=== PATIENT | male | born 1965 | race Caucasian/White ===

== ENCOUNTER 2021-04-06 17:34 | Inpatient (IN) ==
[2021-04-06 20:33] VITALS: BMI 29.9
[2021-04-06] MEDS ORDERED: PERCOCET TAB 5/325 MG PO PRN (20:54)
[2021-04-06] MEDS ORDERED: HEPARIN SODIUM IN D5W 25,000 UNITS/500 ML BAG IV PRN (20:54)
[2021-04-06] MEDS ORDERED: DILAUDID INJ IVP PRN (20:57)
[2021-04-06 21:16] LABS: BASOPHILS # (AUTO) 0.1 X10^3/uL (0.0-0.1); BASOPHILS % (AUTO) 0.6 % (0.2-1.0); EOSINOPHILS # (AUTO) 0.3 x10^3/uL (0.0-0.2); HEMATOCRIT 38.4 % (42.0-54.0); HEMOGLOBIN 13.6 g/dL (13.5-18.0); LYMPHOCYTES # (AUTO) 3.4 X10^3/uL (1.3-2.9); LYMPHOCYTES % (AUTO) 39.3 % (21.0-51.0); MEAN CORPUSCULAR HEMOGLOBIN 31.1 pg (27.0-34.0); MEAN CORPUSCULAR HGB CONC 35.3 g/dL (33.0-35.0); MEAN PLATELET VOLUME 6.6 fL (7.4-11.0); MONOCYTES % (AUTO) 11.4 % (0.0-13.0); NEUTROPHILS # (AUTO) 3.9 x10^3/uL (2.2-4.8); NEUTROPHILS % (AUTO) 44.7 % (42.0-75.0); PLATELET COUNT 295 X10^3/uL (150.0-450.0); RED BLOOD COUNT 4.37 X10^6/uL (4.7-6.0); RED CELL DISTRIBUTION WIDTH 12.4 % (11.6-16.5); WHITE BLOOD COUNT 8.7 X10^3/uL (3.6-10.0)
--- NOTE | 2021-04-06 21:18 | DR.H&P ---
H&P History & Physical for Day of: H&P Date: 04/06/21 Chief Complaint Chief Complaint: 55 year old male with non-healing Venous stasis ulcer to the left medial ankle . Allergies Allergies Allergy/AdvReac Type Severity Reaction Status Date / Time No Known Drug Allergies Allergy Verified 04/06/21 20:39 [NKDA] History of Present Illness History of Present Illness: 55 year old male with non-healing Venous stasis ulcer to the left medial ankle. History of deep Venous Thrombosis of the left leg in the past treated with Eliquis x 3 months. No longer on Eliquis. No history or family history of coagulation problems. History of ulcer colitis status post total proctocolectomy with a J pouch .he had venous insufficiency studies day showing extensive thrombosis ,both exclusive the non-exclusive of the left femoral vein, popliteal vein and tibial as well as superficial Venous Thrombosis of the right greater saphenous vein . he is admitted for any correlation and further study Past Medical History Past Medical History: Hypertension Additional Medical History: history of ulcerative colitis status post total proctocolectomy with J pouch Past Surgical History Surgical History: Abdominal Surgery (total proctocolectomy with J pouch and interim pop off ileostomy now closed ) Social History Does patient currently use any type of tobacco product: Yes Have you used tobacco products in the last 12 months: Yes Type of Tobacco Use: Smokeless Does any household member use tobacco: No Alcohol Use: DAILY Drug Use: None Prescription drug monitoring program results: PDMP reviewed and no concerns identified Medications Home Medications: No Known Drug Allergies [NKDA] Allergy (Verified 04/06/21 20:39) CONTINUE taking the following medications amlodipine 10 mg PO DAILY 04/06/21 [History] diphenoxylate-atropine [Lomotil] tab 04/06/21 [History] lisinopril 40 mg PO DAILY 04/06/21 [History] Labs Result Diagrams: 04/06/21 21:07 04/06/21 21:07 Labs: Laboratory SARS CoV-2 RNA Rapid ANT Negative (NEGATIVE) 04/06/21 18:17 labs pending Review of Systems Constitutional: No Symptoms Reported Eyes: No Symptoms Reported ENT: No Symptoms Reported Respiratory: No Symptoms Reported Cardiovascular: No Symptoms Reported Gastrointestinal: No Symptoms Reported Genitourinary: No Symptoms Reported Musculoskeletal: No Symptoms Reported Skin: Other (Venous stasis ulceration to the left medial ankle ) Physical Exam Vital Signs: Temperature 98.8 F Pulse Rate 59 Respiratory Rate 20 Blood Pressure 147/87 O2 Sat by Pulse Oximetry 98 Oriented: Normal, Time, Person and Place Eyes: Normal Ear: Normal Nose: Normal Throat: Normal Respiratory: Clear Throughout Cardiovascular: Normal : Normal Auscultation: Bowel Sounds: Normal Palpation: Normal and Other (healed midline incision. ) Tenderness: Normal Skin: Wound (5 cm by 3 cm by 0. 2 CM superficial ulceration left medial ankle consistent with Venous stasis ,mild hemosiderin deposition both ankles ) Musculoskeletal: Normal Psychiatric: Normal Mood Description: Calm Affect: Normal Speech Pattern: Clear Assessment/Plan (1) Deep venous embolism and thrombosis of left lower extremity: Status: Acute Plan: will place on Heparin drip. Plan placement of EKOS catheter and venography of the left leg tomorrow (2) Ulcerative (chronic) enterocolitis: Status: Acute Plan: no current treatment (3) Hypertension: Status: Acute Plan: treat with amlodipine and lisinopril as outpatient Review H&P Reviewed: Yes Patient was examined?: Yes
[2021-04-06 21:24] LABS: BLOOD UREA NITROGEN 12 mg/dL (7-18); CALCIUM 8.7 mg/dL (8.5-10.1); CARBON DIOXIDE 29.6 mmol/L (21-32); CHLORIDE 104 mmol/L (98-107); CREATININE 1.03 mg/dL (0.70-1.30); SODIUM 140 mmol/L (136-145); eGFR NON BLACK RACES > 60 (>60)
[2021-04-06] MEDS: LR 1,000 ML IV 1,000 ML IV SCH (21:34)
[2021-04-06] MEDS ORDERED: HEPARIN SODIUM INJ 5000 UNITS IVP ONE (21:43)
[2021-04-07] MEDS ORDERED: HEPARIN SODIUM INJ 5000 UNITS IVP ONE (04:31)
--- NOTE | 2021-04-07 08:41 | RAD ---
HISTORYpre op vascular sxSTUDYCHEST, 1 VIEWCOMPARISONNoneTECHNIQUEAP view of the chestFINDINGSThe cardiac and mediastinal contours are within normal limits. The lungs are clear without focal consolidation or segmental collapse. No pleural effusion or pneumothorax.IMPRESSIONNo acute pulmonary process.Electronically signed by: Colby Varela (Apr 07, 2021 08:39:55)
[2021-04-07] MEDS: LR 1,000 ML IV 1,000 ML IV SCH (09:03)
[2021-04-07] MEDS ORDERED: ANCEF 1 GRAM IV PREMIX* 1 G/50 ML BAG IV ONE (11:49)
[2021-04-07] MEDS ORDERED: BRIDION ONE (11:54)
[2021-04-07] MEDS ORDERED: DECADRON INJ ONE (11:54)
[2021-04-07] MEDS ORDERED: FENTANYL VIAL INJ 100 mcg ONE (11:55)
[2021-04-07] MEDS ORDERED: OFIRMEV IV 1000 MG VIAL 1,000 MG/100 ML VIAL IV ONE (11:55)
[2021-04-07] MEDS ORDERED: PEPCID 20 MG IV PREMIX* 50 ML IV ONE (11:55)
[2021-04-07] MEDS ORDERED: DILAUDID INJ ONE (11:55)
[2021-04-07] MEDS ORDERED: ACTIVASE CATHFLO 12 MG in NS 250 ML IV 228 ML INTRACATH SCH (12:30)
[2021-04-07] MEDS ORDERED: HEPARIN SODIUM INJ 5000 UNITS ONE (12:32)
[2021-04-07] MEDS ORDERED: HEPARIN SODIUM IN D5W 75,000 UNITS/1,500 ML BAG ONE (12:33)
[2021-04-07] MEDS ORDERED: ACTIVASE CATHFLO ONE (12:33)
[2021-04-07] MEDS ORDERED: NS 500 ML IV 500 ML IV ONE (12:33)
[2021-04-07] MEDS ORDERED: HEPARIN SODIUM IN D5W 25,000 UNITS/500 ML BAG ONE (12:41)
[2021-04-07] MEDS ORDERED: XYLOCAINE 2 % (PLAIN) ONE (12:49)
[2021-04-07] MEDS ORDERED: ROBINUL ONE (12:49)
[2021-04-07] MEDS ORDERED: ZEMURON 50 MG VIAL ONE (12:49)
[2021-04-07] MEDS ORDERED: ULTANE GAS IN ONE (12:49)
[2021-04-07] MEDS ORDERED: EPHEDRINE SULFATE INJ ONE (12:49)
[2021-04-07] MEDS ORDERED: ZOFRAN INJ 4 MG VIAL ONE (12:49)
[2021-04-07] MEDS ORDERED: DIPRIVAN VIAL ONE (12:49)
[2021-04-07] MEDS ORDERED: VERSED ONE (12:49)
[2021-04-07] MEDS ORDERED: KETALAR ONE (12:49)
[2021-04-07] MEDS ORDERED: REGLAN INJ 10 MG VIAL IVP PRN (14:35)
[2021-04-07] MEDS ORDERED: PHENERGAN INJ 25 MG IM PRN (14:35)
[2021-04-07] MEDS ORDERED: LR 1,000 ML IV 1,000 ML IV ONE (14:35)
[2021-04-07] MEDS ORDERED: ZOFRAN INJ 4 MG VIAL IVP PRN (14:35)
[2021-04-07] MEDS ORDERED: BARHEMSYS INJ IVP PRN (14:35)
[2021-04-07] MEDS ORDERED: BENADRYL INJ 50 MG VIAL IVP PRN (14:35)
[2021-04-07] MEDS ORDERED: DILAUDID INJ IVP PRN (14:35)
--- NOTE | 2021-04-07 14:36 | OR.IMMED ---
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
[2021-04-07] MEDS: NORVASC TAB 10 MG PO SCH (15:46)
[2021-04-07] MEDS: ZESTRIL TAB 40 MG PO SCH (15:46)
--- NOTE | 2021-04-07 20:01 | DR.OPNOTE ---
OP NOTE Pre-Op Diagnosis: Extensive occlusive and nonocclusive thrombus throughout the left leg veins Post-Op Diagnosis: distal venous scarring , no acute thrombus, left iliac compression Procedure Date Date Of Procedure: 04/07/21 Procedure: PROCEDURE: left lower extremity venogram NARRATIVE : This patient was evaluated for non-healing Venous stasis ulcer to the left medial ankle. He had a history of deep Venous Thrombosis approximately 18 months prior and treated with three months of Eliquis. Follow-up ultrasound venous insufficiency study was interpreted as extensive occlusive and non- occlusive thrombus throughout the left femoral vein, popliteal vein and tibial veins. The patient was taken to the operative suite and general endotracheal anesthesia induced. Patient was then placed in the prone position and the left popliteal fossa prepped and draped in sterile fashion. Time out for the procedure obtained .Ultrasound used to identify the left popliteal vein and used to puncture the left popliteal vein with placement of a 0. 012 inch guide wire. Incision made over the guide wire at the skin level and microsheath placed in the left popliteal vein. The patient was given 5,000 units of intravenous heparin. The small wire exchanged for a 0. 035 inch Advantage glidewire and the microsheath exchanged for a 6 Vietnamese vascular sheath. Venogram carried out showing extensive collateral flow around the left knee. Trailblazer catheter placed over the guide wire and used to guide it through the very small popliteal vein into the femoral vein and venogram performed showing no evidence of thrombus Venogram also carried out of the iliac veins showing no thrombus but significant compression of both the left external and left common iliac veins. Attempted to place intravascular ultrasound but was unsuccessful due to the tight area in the popliteal vein. Elected to stop and treat this patient with Eliquis for now and come back at another time and access through the femoral vein to perform stenting of the left iliac vein in the future. I have explained this to the patient and his family. They agree to proceed. Patient was given 20 mg of IV Protamine .Wire and the sheath in the popliteal fossa removed and pressure held for 10 minutes and dressing applied. Patient taken to PACU for recovery. Type of Anesthesia: General Anesthetic w/ETT and General Anesthetic w/mask Findings: Evidence of old scarring distal veins of the left leg. Poor healing Venous stasis ulcer medial left ankle .Significant collateral venous flow below the knee of the left leg . No obvious acute thrombus left popliteal vein or femoral vein . Significant compression of the left external iliac vein and left common iliac vein . Specimen/Pathology: none Total Amount of Fluid Infused:: 400 cc EBL: minimal Drains/Tubes Placed: None Complications:: none Needle/Sponge Count:: correct Disposition/Condition: Pt. tolerated procedure without difficulty. Extubated in the OR and taken to ICU iin stable condition.
[2021-04-07] MEDS: ELIQUIS PO SCH (20:23)
[2021-04-08] MEDS: LR 1,000 ML IV 1,000 ML IV SCH ×3 (05:00→12:10)
[2021-04-08] MEDS: ZESTRIL TAB 40 MG PO SCH (08:55)
[2021-04-08] MEDS: ELIQUIS PO SCH (08:55)
[2021-04-08] MEDS: NORVASC TAB 10 MG PO SCH (08:55)
[2021-04-08 12:08] VITALS: BP 125/71
--- NOTE | 2021-04-08 12:47 | W.DIS.FURT ---
Summary of Discharge Discharge Summary of Date Date of Exam: 04/08/21 Admission Date Date of Admission: 04/06/21 Admission Diagnosis Hospital Course: 55 year old male with a history of deep venous thrombosis of the left leg approximately eighteen months ago treated with Eliquis for 3 months. Now with non-healing venous stasis ulcer to the left medial ankle. Venous insufficiency studies were performed and interpreted as significant occlusive and non inclusive thrombus of the left popliteal and femoral veins. He was admitted and placed on a Heparin drip. He was taken to the operating Suite the next day where he underwent puncture of the left popliteal vein in the left popliteal fossa with on table venogram showing significant collateral flow around the knee and probable old DVT below the knee. However, the popliteal vein and femoral vein were normal showing no thrombus. However, there was significant extrinsic compression of the left common and external iliac veins. At this time I have chosen to treat with Eliquis for 3 months and in the next few weeks will do a femoral vein approach to the left iliac vein with stenting . Because of the history of thrombosis of the right greater saphenous vein I will perform venogram of the right iliac veins as well .He will be on Eliquis 10 mg BID x 6 days , then decrease to 5 mg po BID. Follow up with me in one week. Vital Signs: Vital Signs (72 hours) 04/06/21 20:00 04/06/21 21:00 04/06/21 22:00 Temperature 98.8 F Pulse Rate 59 L 58 L 54 L Respiratory Rate 20 18 16 Blood Pressure 147/87 157/89 157/89 O2 Sat by Pulse Oximetry 98 98 96 04/06/21 23:00 04/07/21 00:00 04/07/21 00:45 Temperature 98.6 F Pulse Rate 57 L 52 L 50 L Respiratory Rate 15 17 16 Blood Pressure 129/74 108/69 O2 Sat by Pulse Oximetry 95 96 96 04/07/21 01:00 04/07/21 01:15 04/07/21 01:32 Temperature Pulse Rate 51 L 57 L 76 Respiratory Rate 14 15 Blood Pressure 118/68 O2 Sat by Pulse Oximetry 96 97 95 04/07/21 01:45 04/07/21 02:00 04/07/21 02:03 Temperature Pulse Rate 55 L 55 L 58 L Respiratory Rate 0 L 18 Blood Pressure 135/80 135/80 O2 Sat by Pulse Oximetry 96 96 97 04/07/21 02:15 04/07/21 02:30 04/07/21 02:45 Temperature Pulse Rate 56 L 50 L 57 L Respiratory Rate 0 L 5 L 17 Blood Pressure O2 Sat by Pulse Oximetry 96 96 96 04/07/21 03:00 04/07/21 03:01 04/07/21 03:15 Temperature Pulse Rate 48 L 51 L 48 L Respiratory Rate 0 L 0 L 17 Blood Pressure 135/69 135/69 O2 Sat by Pulse Oximetry 97 96 97 04/07/21 03:30 04/07/21 03:45 04/07/21 04:00 Temperature 98.4 F Pulse Rate 48 L 49 L 46 L Respiratory Rate 17 14 13 Blood Pressure 138/74 O2 Sat by Pulse Oximetry 96 96 96 04/07/21 04:15 04/07/21 04:30 04/07/21 04:45 Temperature Pulse Rate 48 L 53 L 52 L Respiratory Rate 17 0 L 0 L Blood Pressure O2 Sat by Pulse Oximetry 97 97 97 04/07/21 05:00 04/07/21 05:15 04/07/21 05:30 Temperature Pulse Rate 56 L 59 L 55 L Respiratory Rate 17 16 17 Blood Pressure 138/85 O2 Sat by Pulse Oximetry 98 99 97 04/07/21 05:45 04/07/21 06:00 04/07/21 06:15 Temperature Pulse Rate 51 L 63 45 L Respiratory Rate 17 17 16 Blood Pressure 133/82 O2 Sat by Pulse Oximetry 97 96 97 04/07/21 06:30 04/07/21 06:45 04/07/21 07:00 Temperature Pulse Rate 47 L 46 L 48 L Respiratory Rate 16 15 15 Blood Pressure 110/61 O2 Sat by Pulse Oximetry 97 96 96 04/07/21 07:15 04/07/21 07:30 04/07/21 07:45 Temperature Pulse Rate 56 L 69 52 L Respiratory Rate 15 21 0 L Blood Pressure O2 Sat by Pulse Oximetry 97 96 96 04/07/21 08:00 04/07/21 08:01 04/07/21 08:15 Temperature Pulse Rate 54 L 52 L 66 Respiratory Rate 21 13 31 H Blood Pressure 150/76 O2 Sat by Pulse Oximetry 96 97 96 04/07/21 08:30 04/07/21 08:45 04/07/21 09:00 Temperature Pulse Rate 61 53 L 53 L Respiratory Rate 20 0 L 7 L Blood Pressure O2 Sat by Pulse Oximetry 95 95 96 04/07/21 09:01 04/07/21 09:15 04/07/21 09:22 Temperature 98.2 F Pulse Rate 53 L 52 L Respiratory Rate 14 0 L Blood Pressure 152/82 O2 Sat by Pulse Oximetry 96 97 04/07/21 09:30 04/07/21 09:45 04/07/21 10:00 Temperature 98.2 F Pulse Rate 57 L 62 55 L Respiratory Rate 14 20 18 Blood Pressure O2 Sat by Pulse Oximetry 97 96 98 04/07/21 10:01 04/07/21 10:15 04/07/21 10:30 Temperature Pulse Rate 57 L 66 56 L Respiratory Rate 19 34 H 8 L Blood Pressure 132/81 O2 Sat by Pulse Oximetry 96 97 97 04/07/21 10:45 04/07/21 10:57 04/07/21 11:00 Temperature 97.9 F 97.9 F Pulse Rate 56 L 51 L Respiratory Rate 14 8 L Blood Pressure 141/73 O2 Sat by Pulse Oximetry 96 97 04/07/21 11:15 04/07/21 14:32 04/07/21 14:37 Temperature 98.0 F 98.0 F Pulse Rate 72 83 88 Respiratory Rate 16 16 Blood Pressure 152/83 146/85 O2 Sat by Pulse Oximetry 97 98 98 04/07/21 14:42 04/07/21 14:47 04/07/21 14:52 Temperature 98.0 F 98.0 F 98.0 F Pulse Rate 84 77 68 Respiratory Rate 16 18 18 Blood Pressure 152/87 139/71 120/70 O2 Sat by Pulse Oximetry 98 98 98 04/07/21 14:55 04/07/21 15:02 04/07/21 15:09 Temperature 98.0 F 98.0 F Pulse Rate 69 69 65 Respiratory Rate 18 18 Blood Pressure 121/69 123/77 131/77 O2 Sat by Pulse Oximetry 98 97 87 L 04/07/21 15:15 04/07/21 15:30 04/07/21 15:45 Temperature 97.8 F Pulse Rate 70 60 54 L Respiratory Rate 18 18 Blood Pressure O2 Sat by Pulse Oximetry 90 L 96 98 04/07/21 16:00 04/07/21 16:15 04/07/21 16:30 Temperature 97.8 F Pulse Rate 71 60 62 Respiratory Rate 25 H 18 22 Blood Pressure O2 Sat by Pulse Oximetry 93 L 98 97 04/07/21 16:45 04/07/21 17:00 04/07/21 17:15 Temperature 98.2 F Pulse Rate 99 H 54 L 97 H Respiratory Rate 33 H 18 27 H Blood Pressure O2 Sat by Pulse Oximetry 94 L 97 95 04/07/21 17:30 04/07/21 17:45 04/07/21 18:00 Temperature Pulse Rate 72 65 66 Respiratory Rate 18 20 19 Blood Pressure O2 Sat by Pulse Oximetry 95 95 96 04/07/21 18:15 04/07/21 18:30 04/07/21 18:45 Temperature Pulse Rate 69 82 81 Respiratory Rate 20 21 21 Blood Pressure O2 Sat by Pulse Oximetry 95 94 L 95 04/07/21 19:00 04/07/21 20:00 04/07/21 21:00 Temperature 98.3 F Pulse Rate 88 99 H 79 Respiratory Rate 19 19 22 Blood Pressure 120/65 120/62 O2 Sat by Pulse Oximetry 95 96 95 04/07/21 22:00 04/07/21 23:00 04/08/21 00:00 Temperature 98.1 F Pulse Rate 75 68 71 Respiratory Rate 22 20 20 Blood Pressure 109/58 109/66 123/71 O2 Sat by Pulse Oximetry 95 94 L 96 04/08/21 00:15 04/08/21 00:30 04/08/21 00:45 Temperature Pulse Rate 75 70 62 Respiratory Rate 20 19 20 Blood Pressure O2 Sat by Pulse Oximetry 97 96 97 04/08/21 01:00 04/08/21 01:15 04/08/21 01:30 Temperature Pulse Rate 61 66 64 Respiratory Rate 20 20 20 Blood Pressure 120/66 O2 Sat by Pulse Oximetry 96 96 96 04/08/21 01:45 04/08/21 02:00 04/08/21 02:15 Temperature Pulse Rate 61 58 L 57 L Respiratory Rate 19 17 17 Blood Pressure 115/66 O2 Sat by Pulse Oximetry 96 95 95 04/08/21 02:30 04/08/21 02:45 04/08/21 03:00 Temperature Pulse Rate 55 L 58 L 58 L Respiratory Rate 17 17 15 Blood Pressure 119/63 O2 Sat by Pulse Oximetry 93 L 93 L 94 L 04/08/21 03:15 04/08/21 03:30 04/08/21 03:45 Temperature Pulse Rate 56 L 51 L 51 L Respiratory Rate 18 22 18 Blood Pressure O2 Sat by Pulse Oximetry 94 L 94 L 94 L 04/08/21 04:00 04/08/21 04:01 04/08/21 04:15 Temperature 98.2 F Pulse Rate 46 L 47 L 68 Respiratory Rate 17 18 19 Blood Pressure 102/53 102/53 O2 Sat by Pulse Oximetry 95 94 L 95 04/08/21 04:30 04/08/21 04:45 04/08/21 05:00 Temperature Pulse Rate 60 61 51 L Respiratory Rate 17 20 19 Blood Pressure 117/66 O2 Sat by Pulse Oximetry 95 96 96 04/08/21 05:15 04/08/21 05:30 04/08/21 05:45 Temperature Pulse Rate 60 54 L 53 L Respiratory Rate 18 18 18 Blood Pressure O2 Sat by Pulse Oximetry 95 98 95 04/08/21 06:00 04/08/21 06:15 04/08/21 06:30 Temperature Pulse Rate 53 L 48 L 47 L Respiratory Rate 16 18 16 Blood Pressure 124/62 O2 Sat by Pulse Oximetry 95 96 95 04/08/21 06:45 04/08/21 07:00 04/08/21 07:15 Temperature Pulse Rate 47 L 47 L 49 L Respiratory Rate 16 16 17 Blood Pressure 119/63 O2 Sat by Pulse Oximetry 95 95 96 04/08/21 07:30 04/08/21 07:45 04/08/21 08:00 Temperature Pulse Rate 54 L 80 65 Respiratory Rate 18 32 H 20 Blood Pressure 134/64 O2 Sat by Pulse Oximetry 98 98 97 04/08/21 08:15 04/08/21 08:30 04/08/21 08:45 Temperature Pulse Rate 52 L 57 L 53 L Respiratory Rate 17 20 19 Blood Pressure O2 Sat by Pulse Oximetry 98 98 98 04/08/21 09:00 04/08/21 09:01 04/08/21 09:15 Temperature Pulse Rate 64 57 L 70 Respiratory Rate 23 19 22 Blood Pressure 143/74 O2 Sat by Pulse Oximetry 98 98 97 04/08/21 09:30 04/08/21 09:45 04/08/21 10:00 Temperature 98.8 F Pulse Rate 47 L 52 L 48 L Respiratory Rate 19 19 18 Blood Pressure 127/73 O2 Sat by Pulse Oximetry 97 98 98 04/08/21 10:15 04/08/21 10:30 04/08/21 10:45 Temperature Pulse Rate 55 L 47 L 52 L Respiratory Rate 19 18 16 Blood Pressure O2 Sat by Pulse Oximetry 98 97 98 04/08/21 11:00 Temperature Pulse Rate 53 L Respiratory Rate 12 Blood Pressure 125/71 O2 Sat by Pulse Oximetry 97 Labs: Laboratory Last Values WBC 8.7 X10^3/uL (3.6-10.0) 04/06/21 21:07 RBC 4.37 X10^6/uL (4.7-6.0) L 04/06/21 21:07 Hgb 13.6 g/dL (13.5-18.0) 04/06/21 21:07 Hct 38.4 % (42.0-54.0) L 04/06/21 21:07 MCV 88.0 fL (80.0-100.0) 04/06/21 21:07 MCH 31.1 pg (27.0-34.0) 04/06/21 21:07 MCHC 35.3 g/dL (33.0-35.0) H 04/06/21 21:07 RDW 12.4 % (11.6-16.5) 04/06/21 21:07 Plt Count 295 X10^3/uL (150.0-450.0) 04/06/21 21:07 MPV 6.6 fL (7.4-11.0) L 04/06/21 21:07 Neut % (Auto) 44.7 % (42.0-75.0) 04/06/21 21:07 Lymph % (Auto) 39.3 % (21.0-51.0) 04/06/21 21:07 [place] % (Auto) 11.4 % (0.0-13.0) 04/06/21 21:07 Eos % (Auto) 4.0 % (0.9-2.9) H 04/06/21 21:07 Baso % (Auto) 0.6 % (0.2-1.0) 04/06/21 21:07 Neut # (Auto) 3.9 x10^3/uL (2.2-4.8) 04/06/21 21:07 Lymph # (Auto) 3.4 X10^3/uL (1.3-2.9) H 04/06/21 21:07 [place] # (Auto) 1.0 x10^3/uL (0.3-0.8) H 04/06/21 21:07 Eos # (Auto) 0.3 x10^3/uL (0.0-0.2) H 04/06/21 21:07 Baso # (Auto) 0.1 X10^3/uL (0.0-0.1) 04/06/21 21:07 Absolute Nucleated RBC 0.1 /100WBC 04/06/21 21:07 PT 12.9 SECONDS (11.8-14.3) 04/06/21 21:07 INR Target Range - 04/06/21 21:07 INR 1.02 (0.8-1.3) 04/06/21 21:07 APTT 64.3 SECONDS (22.9-36.5) H 04/07/21 10:25 PTT Comment - 04/07/21 10:25 Sodium 140 mmol/L (136-145) 04/06/21 21:07 Corrected Sodium TNP 04/06/21 21:07 Potassium 4.1 mmol/L (3.5-5.1) 04/06/21 21:07 Chloride 104 mmol/L (98-107) 04/06/21 21:07 Carbon Dioxide 29.6 mmol/L (21-32) 04/06/21 21:07 BUN 12 mg/dL (7-18) 04/06/21 21:07 Creatinine 1.03 mg/dL (0.70-1.30) 04/06/21 21:07 Est GFR (MDRD) Af Amer > 60 (>60) 04/06/21 21:07 Est GFR (MDRD) Non-Af > 60 (>60) 04/06/21 21:07 Glucose 106 mg/dL (65-99) H 04/06/21 21:07 Calcium 8.7 mg/dL (8.5-10.1) 04/06/21 21:07 SARS CoV-2 RNA Rapid ANT Negative (NEGATIVE) 04/06/21 18:17 Reason For Visit: OCCLUSIVE THROMBOSIS OF LEFT FEMORAL VEIN, Discharge Date Discharge Date: 04/08/21 Discharge Diagnosis All Active Problems (Updated 04/08/21 @ 12:46 by Chidi Sepulveda) Compression, vein (Acute) Deep vein thrombosis of left femoral vein (Acute) Deep venous embolism and thrombosis of left lower extremity (Acute) Ulcerative (chronic) enterocolitis (Acute) Hypertension (Acute) Plan of Treatment: Continue with present treatment and follow up plan. Pt is to keep follow up appointment as instructed and take medications as ordered. Discharge Medications Discharge Medications: No Known Drug Allergies [NKDA] Allergy (Verified 04/06/21 20:39) CONTINUE taking the following medications amlodipine 10 mg PO DAILY 04/06/21 [History] diphenoxylate-atropine [Lomotil] 2 tab PO BID 04/06/21 [History] lisinopril 40 mg PO DAILY 04/06/21 [History] New Prescriptions apixaban [Eliquis] 5 mg PO BID #180 tab 04/08/21 [Rx] Follow up and Referral Follow Up: 1 Week Discharge Disposition Assessment: Hx left leg DVT. Left iliac vein compression. Discharge Disposition: stable Discharge Condition: stable Discharge Plan Discharge Plan Hospital Course: 55 year old male with a history of deep venous thrombosis of the left leg approximately eighteen months ago treated with Eliquis for 3 months. Now with non-healing venous stasis ulcer to the left medial ankle. Venous insufficiency studies were performed and interpreted as significant occlusive and non inclusive thrombus of the left popliteal and femoral veins. He was admitted and placed on a Heparin drip. He was taken to the operating Suite the next day where he underwent puncture of the left popliteal vein in the left popliteal fossa with on table venogram showing significant collateral flow around the knee and probable old DVT below the knee. However, the popliteal vein and femoral vein were normal showing no thrombus. However, there was significant extrinsic compression of the left common and external iliac veins. At this time I have chosen to treat with Eliquis for 3 months and in the next few weeks will do a femoral vein approach to the left iliac vein with stenting . Because of the history of thrombosis of the right greater saphenous vein I will perform venogram of the right iliac veins as well .He will be on Eliquis 10 mg BID x 6 days , then decrease to 5 mg po BID. Follow up with me in one week. Patient Disposition: 01 HOME, SELF-CARE Condition: Stable Health Concerns: Post Hospitalization: new medications and changes needed to prevent readmission or further decline. Pt educated and given instructions on all concerns. Care Plan Goals: Problem: Pain/Alteration in Comfort Goal: Improve/ Resolve Pain; Achieve Pain Tolerance Instructions: Take pain medications as prescribed. Contact your primary care provider if your pain is unrelieved or worsens. Follow up with primary care provider as directed. Plan of Treatment: Continue with present treatment and follow up plan. Pt is to keep follow up appointment as instructed and take medications as ordered. Assessment: Hx left leg DVT. Left iliac vein compression. Prescription drug monitoring program results: PDMP reviewed and no concerns identified Prescriptions: New Eliquis 5 mg Tablet 5 mg PO BID Qty: 180 RF: 0 Continued diphenoxylate-atropine [Lomotil] 2.5-0.025 mg Tablet 2 tab PO BID RF: 0 amlodipine 5 mg tablet 10 mg PO DAILY RF: 0 lisinopril 40 mg tablet 40 mg PO DAILY RF: 0 Follow ups/Referrals Follow ups/Referrals: Chidi Sepulveda [STAFF PHYSICIAN] - 04/13/21 9:00 am Instructions Instructions: Fall Prevention in the Home, Adult, [id number], Catheter- Directed Thrombolysis, Wound Infection, [id number], How to Change Your Wound Dressing, [id number], Bleeding Precautions When on Anticoagulant Therapy, Adult, Hypertension, Adult, [id number], Deep Vein Thrombosis, Venous Thromboembolism Prevention Stand Alone Forms: Excuse From Work or School, Precautions for COVID19, [facility], Patient Portal, Social Distancing
== END 2021-04-08 12:53 | disposition home or self-care (01) | DRG 300 ==
LOC: ICU → OBSVTOIN 17:34
PROVIDERS: ADMIT Surgery; ATTEND Surgery